=== PATIENT | female | born 1995 | race Caucasian/White ===

== ENCOUNTER 2020-12-04 07:44 | Day surgery (SDC) | payer BC ==
[~2020-12-04] VITALS: Ht 170.2 cm; Wt 172.7 kg
[2020-12-04 07:50] VITALS: BP 148/84
[2020-12-04] MEDS ORDERED: OMEP-50 PO (08:07)
[2020-12-04] MEDS ORDERED: LIDOcaine Viscous 15ml cup ONE (08:09)
[2020-12-04] MEDS ORDERED: fentaNYL/PF 50MCG/1 ML 2ML syringe ONE (08:09)
[2020-12-04] MEDS ORDERED: MIDAZolam 1 MG/ML 5ML VIAL ONE (08:09)
[2020-12-04 09:42] VITALS: BP 161/107
[2020-12-04 09:52] VITALS: BP 164/96
[2020-12-04 10:02] VITALS: BP 169/91
[2020-12-04 10:12] VITALS: BP 162/90
== END 2020-12-04 10:15 | disposition home or self-care (01) ==
LOC: GI LAB 07:44
PROVIDERS: ATTEND Internal Medicine Gastroenterology
DX: R10.10 Upper abdominal pain, unspecified (principal); K21.9 Gastro-esophageal reflux disease without esophagitis; E66.9 Obesity, unspecified; Z68.43 Body mass index [BMI] 50.0-59.9, adult; Z88.2 Allergy status to sulfonamides; Z88.0 Allergy status to penicillin
CPT/HCPCS: 43239; 99152; J2250; J3010; J7040; A4620